=== PATIENT | male | born 1990 | race African-American/Black ===

== ENCOUNTER 2018-01-27 02:07 | Emergency (ER) | payer MEDICAID ==
[~2018-01-27] VITALS: Ht 170.2 cm; Wt 5.0 kg
[2018-01-27] MEDS ORDERED: HYDROCODONE/ACETAMINOPHEN 5/325MG TABLET PO ONE (02:30)
[2018-01-27 04:58] VITALS: BP 140/95
== END 2018-01-27 05:05 | disposition home or self-care (01) ==
LOC: ER 02:07
DX: M79.641 Pain in right hand (principal); M25.572 Pain in left ankle and joints of left foot; Y04.2XXA Assault by strike against or bumped into by another person, initial encounter; Y93.89 Activity, other specified; Y92.89 Other specified places as the place of occurrence of the external cause; R03.0 Elevated blood-pressure reading, without diagnosis of hypertension; F12.90 Cannabis use, unspecified, uncomplicated
CPT/HCPCS: 73610; 99284